=== PATIENT | male | born 1960 | race Caucasian/White ===

== ENCOUNTER 2018-04-22 12:49 | Emergency (ER) | payer MEDICARE ==
[2018-04-22] MEDS ORDERED: diphenhydrAMINE 50 MG/ML SDV IVPUSH ONE (13:53)
[2018-04-22] MEDS ORDERED: Sodium Chloride 0.9% 10 ML Syringe FLUSH PRN (13:53)
[2018-04-22] MEDS ORDERED: Ketorolac 30 MG/ML SDV IVPUSH ONE (13:53)
[2018-04-22] MEDS ORDERED: Sodium Chloride 0.9% 1,000 ML IV SCH ×2 (14:00→15:30)
--- NOTE | 2018-04-22 14:22 | EDM.PDOC ---
ED HPI GENERAL MEDICAL PROBLEM - General Chief Complaint: Headache Stated Complaint: MIGRAINE Time Seen by Provider: 04/22/18 13:44 Source of Information: Reports: Patient History Limitations: Reports: No Limitations - History of Present Illness INITIAL COMMENTS - FREE TEXT/NARRATIVE: Here on vacation; started to get a headache yesterday around 1300; and it has progressively gotten worse. He has a hx of migraines; he states it is baseball cap distribution. Some nausea No double or blurry vision Denies seasonal allergies/ NKDA on propranolol for heart palpitations Has been drinking plenty of water up until today Also, as patient was being discharged, he states he didn't feel well; his BP was low and pulse was high. He tells me he has this all the time and he can "make it go away". He has been seen in his local ER for heart rate in the 200's and was discharged home without referral to cardiology. He feels week, uncomfortable. Slight nausea. Onset: Gradual Location: Reports: Head Severity: Severe Improves with: Reports: None Worsens with: Reports: Movement Associated Symptoms: Reports: Loss of Appetite, Nausea/Vomiting Headache Pain Score (Numeric/FACES): 9 - Related Data Allergies Allergy/AdvReac Type Severity Reaction Status Date / Time No Known Allergies Allergy Verified 04/22/18 13:53 Home Meds: Home Meds Omeprazole 20 mg PO DAILY 04/22/18 [History] Propranolol [Inderal] 10 mg PO DAILY 04/22/18 [History] Past Medical History Cardiovascular History: Reports: Hypertension Musculoskeletal History: Reports: Fracture Social & Family History - Tobacco Use Smoking Status *Q: Never Smoker - Caffeine Use Caffeine Use: Reports: Coffee - Recreational Drug Use Recreational Drug Use: No ED ROS GENERAL - Review of Systems Review Of Systems: See Below Constitutional: Reports: Decreased Appetite HEENT: Reports: Eye Pain Respiratory: Reports: No Symptoms Cardiovascular: Reports: No Symptoms GI/Abdominal: Reports: Nausea. Denies: No Symptoms Musculoskeletal: Reports: No Symptoms Skin: Reports: No Symptoms ED EXAM, GENERAL - Physical Exam Exam: See Below Exam Limited By: No Limitations General Appearance: Alert, WD/WN, Mild Distress, Other (you can tell he is uncomfortable) Eye Exam: Bilateral Eye: EOMI, PERRL Head: Atraumatic, Normocephalic Neck: Full Range of Motion Respiratory/Chest: No Respiratory Distress, Lungs Clear, Normal Breath Sounds Cardiovascular: Regular Rate, Rhythm Back Exam: Full Range of Motion Extremities: Normal Range of Motion Neurological: Alert, Oriented, CN II-XII Intact, Normal Cognition, Normal Reflexes, No Motor/Sensory Deficits Psychiatric: Normal Affect, Normal Mood Skin Exam: Warm, Dry, Intact, Normal Color, No Rash Course - Vital Signs Last Recorded V/S: Last Vital Signs Temp 97.2 F 04/22/18 13:55 Pulse 183 H 04/22/18 15:30 Resp 16 04/22/18 15:30 BP 128/90 04/22/18 15:30 Pulse Ox 96 04/22/18 15:30 - Orders/Labs/Meds Orders: Active Orders 24 hr Category Date Time Status EKG Documentation Completion [RC] ASDIRECTED Care 04/22/18 15:11 Active EKG Documentation Completion [RC] ASDIRECTED Care 04/22/18 15:34 Active Peripheral IV Care [RC] . DIRECTED Care 04/22/18 13:53 Active Peripheral IV Insertion Adult [OM.PC] Stat Oth 04/22/18 13:53 Ordered EKG 12 Lead [EK] Routine Ther 04/22/18 15:10 Ordered EKG 12 Lead [EK] Routine Ther 04/22/18 15:34 Ordered Labs: Laboratory Tests 04/22/18 04/22/18 04/22/18 Range/Units 14:08 14:08 15:15 WBC 10.6 (4.5-11.0) K/uL RBC 5.51 (4.30-5.90) M/uL Hgb 15.8 H (12.0-15.0) g/dL Hct 45.4 (40.0-54.0) % MCV 82 (80-98) fL MCH 29 (27-31) pg MCHC 35 (32-36) % Plt Count 212 (150-400) K/uL Neut % (Auto) 64 (36-66) % Lymph % (Auto) 23 L (24-44) % [place] % (Auto) 12 H (2-6) % Eos % (Auto) 1 L (2-4) % Baso % (Auto) 0 (0-1) % Sodium 136 L (140-148) mmol/L Potassium 3.9 (3.6-5.2) mmol/L Chloride 101 (100-108) mmol/L Carbon Dioxide 24 (21-32) mmol/L Anion Gap 14.9 H (5.0-14.0) mmol/L BUN 16 (7-18) mg/dL Creatinine 1.1 (0.8-1.3) mg/dL Est Cr Clr Drug Dosing 72.55 mL/min Estimated GFR (MDRD) > 60 (>60) Glucose 134 H (74-106) mg/dL Calcium 8.7 (8.5-10.1) mg/dL Magnesium (1.8-2.4) mg/dL Total Bilirubin 0.9 (0.2-1.0) mg/dL AST 18 (15-37) U/L ALT 33 (12-78) U/L Alkaline Phosphatase 68 (46-116) U/L Troponin I < 0.017 (0.000-0.056) ng/mL Total Protein 7.1 (6.4-8.2) g/dL Albumin 3.2 L (3.4-5.0) g/dL Globulin 3.9 H (2.3-3.5) g/dL Albumin/Globulin Ratio 0.8 L (1.2-2.2) TSH, Ultra Sensitive (0.358-3.740) uIU/mL 04/22/18 04/22/18 Range/Units 15:35 16:30 WBC (4.5-11.0) K/uL RBC (4.30-5.90) M/uL Hgb (12.0-15.0) g/dL Hct (40.0-54.0) % MCV (80-98) fL MCH (27-31) pg MCHC (32-36) % Plt Count (150-400) K/uL Neut % (Auto) (36-66) % Lymph % (Auto) (24-44) % [place] % (Auto) (2-6) % Eos % (Auto) (2-4) % Baso % (Auto) (0-1) % Sodium (140-148) mmol/L Potassium (3.6-5.2) mmol/L Chloride (100-108) mmol/L Carbon Dioxide (21-32) mmol/L Anion Gap (5.0-14.0) mmol/L BUN (7-18) mg/dL Creatinine (0.8-1.3) mg/dL Est Cr Clr Drug Dosing mL/min Estimated GFR (MDRD) (>60) Glucose (74-106) mg/dL Calcium (8.5-10.1) mg/dL Magnesium 2.2 (1.8-2.4) mg/dL Total Bilirubin (0.2-1.0) mg/dL AST (15-37) U/L ALT (12-78) U/L Alkaline Phosphatase (46-116) U/L Troponin I (0.000-0.056) ng/mL Total Protein (6.4-8.2) g/dL Albumin (3.4-5.0) g/dL Globulin (2.3-3.5) g/dL Albumin/Globulin Ratio (1.2-2.2) TSH, Ultra Sensitive 0.510 (0.358-3.740) uIU/mL Meds: Medications Discontinued Medications Generic Name Dose Route Start Last Admin Trade Name Venancio PRN Reason Stop Dose Admin Adenosine 6 mg 04/22/18 15:18 04/22/18 15:30 Adenocard IVPUSH 04/22/18 15:19 6 mg NOW ONE Administration Adenosine 12 mg 04/22/18 15:19 Adenocard IVPUSH 04/22/18 15:20 NOW ONE Diphenhydramine HCl 50 mg 04/22/18 13:53 04/22/18 14:08 Benadryl IVPUSH 04/22/18 13:54 50 mg ONETIME ONE Administration Hydromorphone HCl 1 mg 04/22/18 14:42 04/22/18 15:06 Dilaudid IVPUSH 04/22/18 14:43 1 mg ONETIME ONE Administration Sodium Chloride 1,000 mls @ 999 mls/hr 04/22/18 14:00 04/22/18 14:10 Normal Saline IV 999 mls/hr ASDIRECTED BRANDON Administration Sodium Chloride 1,000 mls @ 999 mls/hr 04/22/18 15:30 04/22/18 15:43 Normal Saline IV 999 mls/hr ASDIRECTED BRANDON Administration Ketorolac Tromethamine 30 mg 04/22/18 13:53 04/22/18 14:06 Toradol IVPUSH 04/22/18 13:54 30 mg ONETIME ONE Administration Ondansetron HCl 8 mg 04/22/18 14:42 04/22/18 15:08 Zofran IVPUSH 04/22/18 14:43 8 mg ONETIME ONE Administration Sodium Chloride 10 ml 04/22/18 13:53 04/22/18 14:10 Saline Flush FLUSH 10 ml ASDIRECTED PRN Administration Keep Vein Open - Re-Assessments/Exams Free Text/Narrative Re-Assessment/Exam: 04/22/18 14:44 resting comfortably after benadryl and toradol/ IVF still infusing States he is very tired; headache is a little bit better Free Text/Narrative Re-Assessment/Exam: 04/22/18 16:52 Patient's heart rate was 180's and regular, found to be in SVT; given IV Adenosine 6 mg, and slowed him down to 80's. He feels much better now. Spoke with Dr. Wynne, [place] [facility]; he recommends that patient since he is stable, to be discharged to home. He needs an echocardiogram and augustus patch and stress test. I attempted to get this ordered in [place], through the emergency room , however because Dr. Wynne didn't order this, they cannot get this arranged. I spoke with the charge nurse with the hope she will contact either the patient' s PCP or the ER provider so that this can be ordered sooner than later. Patient will be discharged home with his ; and they are to contact the clinic right away in the morning for further instruction; or show up to the clinic if need be. Departure - Departure Time of Disposition: 17:30 Disposition: Home, Self-Care 01 Condition: Good Clinical Impression: SVT (supraventricular tachycardia), Headache - Discharge Information Instructions: Supraventricular Tachycardia, Adult, Dehydration, Adult, Easy-to- Read, Recurrent Migraine Headache, [id number] Referrals: PCP,None [Primary Care Provider] - Forms: ED Department Discharge Additional Instructions: Rest, push fluids; refrain from alcohol Tomorrow (04/22/18) call or go to your clinic, and request referral for cardiology ; You need to have an echocardiogram, stress test and augustus patch, per Dr. Wynne, [facility] office. If you get the feeling your heart is racing again, go to the ER. If headache worsens, return to ER; need further evaluation, maybe head CT Follow up with your doctor to let them know you were in the ER Call with questions. ED Communication - ED Communication Date/Time Date: 04/22/18 Time Called: 16:29 - Discussed Case With (1) Discussed Case With (1): Outpatient Provider (Spoke with Dr. Wynne, [facility] office ; his recommendtion is for him to have a augustus patch, cardiac echocardiogram and stress test which can be done on outpatient basis but should be done within the week.) - Problem List & Annotations (1) SVT (supraventricular tachycardia) SNOMED Code(s): 4323575 Code(s): I47.1 - SUPRAVENTRICULAR TACHYCARDIA Status: Acute Priority: High (2) Headache SNOMED Code(s): 13689236 Code(s): R51 - HEADACHE Status: Acute Qualifiers: Headache type: unspecified - Problem List Review Problem List Initiated/Reviewed/Updated: Yes - My Orders Last 24 Hours: My Active Orders 04/22/18 13:53 Peripheral IV Care [RC] . DIRECTED Peripheral IV Insertion Adult [OM.PC] Stat 04/22/18 15:10 EKG 12 Lead [EK] Routine 04/22/18 15:11 EKG Documentation Completion [RC] ASDIRECTED 04/22/18 15:34 EKG Documentation Completion [RC] ASDIRECTED EKG 12 Lead [EK] Routine - Assessment/Plan Last 24 Hours: My Active Orders 04/22/18 13:53 Peripheral IV Care [RC] . DIRECTED Peripheral IV Insertion Adult [OM.PC] Stat 04/22/18 15:10 EKG 12 Lead [EK] Routine 04/22/18 15:11 EKG Documentation Completion [RC] ASDIRECTED 04/22/18 15:34 EKG Documentation Completion [RC] ASDIRECTED EKG 12 Lead [EK] Routine
[2018-04-22] MEDS ORDERED: Ondansetron 4 MG/2 ML SDV IVPUSH ONE (14:42)
[2018-04-22] MEDS ORDERED: HYDROmorphone 1 MG/ML Syringe IVPUSH ONE (14:42)
[2018-04-22] MEDS ORDERED: Adenosine 6 MG/2 ML SDV IVPUSH ONE ×2 (15:18→15:19)
== END 2018-04-22 17:21 | disposition home or self-care (01) ==
LOC: JP.ED 12:49
DX: I47.1 Supraventricular tachycardia (principal); R51 Headache; I10 Essential (primary) hypertension
CPT/HCPCS: 36415; 80053; 83735; 84443; 84484; 85025; 93005; 96361; 96374; 96375; 99284; J0153; J1170; J1200; J1885; J2405; J7030; J7050